=== PATIENT | female | born 1945 | race Caucasian/White ===

== ENCOUNTER → 2020-12-16 10:39 | Outpatient (CLI) | payer MEDICARE, SELFPAY ==
--- NOTE | ~2020-12-16 | MM_ITS ---
EXAMINATION: MM screening hardeep BI w jennifer HISTORY: Screening mammogram TECHNIQUE: Craniocaudal and mediolateral oblique 3-D tomosynthesis images were obtained and synthetic 2-D images were generated. CAD analysis was submitted and interpreted. COMPARISON: 02/18/2019, 10/22/2017 bilateral digital screening mammogram examinations 10/19/2016 bilateral diagnostic digital mammogram and bilateral complete breast ultrasound 10/06/2016 bilateral digital screening mammogram BREAST PARENCHYMAL COMPOSITION: The breasts are extremely dense, which lowers the sensitivity of mamm ography. FINDINGS: There is no evidence of suspicious mass, calcification, or architectural distortion to sugg est malignancy in either breast. There has been no suspicious interval change. IMPRESSION: 1. No mammographic evidence of malignancy. 2. Recommend routine screening mammography in one year. BI-RADS Category 1: Negative Reviewed, dictated and finalized at location A.
== END ==
PROVIDERS: Visit Provider Nurse Practitioner Obstetrics & Gynecology
DX: Z12.31 Encounter for screening mammogram for malignant neoplasm of breast (principal)
CPT/HCPCS: 77063; 77067

== ENCOUNTER 2021-10-24 11:31 | Outpatient (CLI) | payer MEDICARE, SELFPAY ==
[2021-10-24 11:52] LABS: Basophils Absolute Auto 0.1 K/mm3 (0.0-0.1); Basophils Percent Auto 0.7 % (0.2-1.2); Eosinophils Percent Auto 0.5 % (0-4.4); Hematocrit 43.3 % (37.0-47.0); Hemoglobin 14.3 g/dL (12.0-15.0); Immature Granulocyte Absolute 0.01 K/mm3 (0.00-0.031); Immature Granulocyte Percent A 0.1 % (0-0.5); Lymphocytes Absolute Auto 1.93 K/mm3 (0.9-3.2); Lymphocytes Percent Auto 26.2 % (18.3-44.2); Mean Corpuscular Hemoglobin 31.7 pg (26-34); Mean Platelet Volume 9.6 fl (7.4-10.4); Monocytes Absolute Auto 0.5 K/mm3 (0.1-0.6); Monocytes Percent Auto 7.2 % (2.6-8.5); Neutrophils Absolute Auto 4.8 K/mm3 (1.3-6.7); Neutrophils Percent Auto 65.3 % (45.5-73.1); Platelet Count Result 229 k/mm3 (150-375); Red Blood Count 4.51 M/mm3 (4.2-5.4); Red Cell Distribution Width 12.7 % (11.5-14.5); White Blood Count 7.4 K/mm3 (4.5-10.0)
[2021-10-24 12:08] LABS: Alanine Aminotransferase 16 U/L (4-35); Albumin Level 4.8 g/dL (3.5-5.1); Alkaline Phosphatase 39 U/L (38-126); Anion Gap 7 mmol/L (8-16); Aspartate Amino Transferase 25 U/L (14-36); Bilirubin,Total 0.8 mg/dL (0.2-1.3); Blood Urea Nitrogen 17 mg/dL (7-17); Calcium 9.5 mg/dL (8.4-10.2); Carbon Dioxide 31 mmol/L (22-30); Chloride 103 mmol/L (98-107); Estimated Glomerular Filt Rate > 60; Glucose 104 mg/dL (65-110); Potassium 3.8 mmol/L (3.4-5.0); Sodium 141 mmol/L (137-145)
== END 2021-10-24 11:32 | disposition home or self-care (01) ==
LOC: ANHLAB 11:37
PROVIDERS: PCP Family Medicine; Visit Provider Family Medicine
DX: R00.2 Palpitations (principal); R53.83 Other fatigue
CPT/HCPCS: 36415; 80053; 84443; 85025

== ENCOUNTER 2021-10-31 18:00 | Emergency (ER) | payer MEDICARE, SELFPAY ==
--- NOTE | ~2021-10-31 | XR_ITS ---
XR chest 2V DATE: 10/31/2021 18:28 INDICATION: Left chest pain, shortness of breath, palpitations TECHNIQUE: PA and lateral views COMPARISON: 11/15/2006 PA chest FINDINGS: Normal heart size. No hilar or mediastinal enlargement. The lungs appear mildly hyperinflat ed but clear of infiltrate or consolidation. No pleural effusion or pulmonary vascular congestion or pneumothorax. Diffuse osteopenia. IMPRESSION: No active disease Reviewed, dictated and finalized at location A. IMPRESSION: No active disease
--- NOTE | 2021-10-31 18:02 | ECG_ITS ---
Measurements Intervals Thompson Rate: 117 P: 68 ND: 130 QRS: 23 QRSD: 73 T: 24 QT: 291 QTc: 407 Interpretive Statements SINUS TACHYCARDIA WITH OCCASIONAL VENTRICULAR PREMATURE COMPLEXES WITH FREQUENT SUPRAVENTRICULAR PREMATURE COMPLEXES MINIMAL ST DEPRESSION [0.025+ mV ST DEPRESSION] ABNORMAL RHYTHM ECG NO PREVIOUS ECG AVAILABLE FOR COMPARISON Electronically Signed On 11-01-2021 11:53:07 CDT by Iesha Delong M.D.
[2021-10-31 18:03] VITALS: BP 146/81; PULSE 119; RESP 16; TEMP 37; O2SAT 97
[2021-10-31 18:21] LABS: Basophils Absolute Auto 0.1 K/mm3 (0.0-0.1); Basophils Percent Auto 0.6 % (0.2-1.2); Eosinophils Absolute Auto 0.1 K/mm3 (0-0.3); Eosinophils Percent Auto 1.3 % (0-4.4); Hematocrit 44.4 % (37.0-47.0); Hemoglobin 14.3 g/dL (12.0-15.0); Immature Granulocyte Absolute 0.03 K/mm3 (0.00-0.031); Immature Granulocyte Percent A 0.3 % (0-0.5); Lymphocytes Percent Auto 31.1 % (18.3-44.2); Mean Corpuscular HGB Conc 32.2 g/dl (32-36); Mean Corpuscular Hemoglobin 31.2 pg (26-34); Mean Corpuscular Volume 96.9 fl (80-100); Monocytes Absolute Auto 0.7 K/mm3 (0.1-0.6); Monocytes Percent Auto 7.1 % (2.6-8.5); Neutrophils Absolute Auto 5.5 K/mm3 (1.3-6.7); Neutrophils Percent Auto 59.6 % (45.5-73.1); Platelet Count Result 247 k/mm3 (150-375); Red Blood Count 4.58 M/mm3 (4.2-5.4); Red Cell Distribution Width 12.7 % (11.5-14.5); White Blood Count 9.3 K/mm3 (4.5-10.0)
[2021-10-31 18:40] LABS: INR 0.9; Prothrombin Time 12.2 Seconds (11.1-14.7)
[2021-10-31 18:41] LABS: Alanine Aminotransferase 14 U/L (4-35); Albumin Level 4.7 g/dL (3.5-5.1); Alkaline Phosphatase 46 U/L (38-126); Anion Gap 9 mmol/L (8-16); Aspartate Amino Transferase 24 U/L (14-36); Bilirubin,Total 0.5 mg/dL (0.2-1.3); Blood Urea Nitrogen 19 mg/dL (7-17); Calcium 9.2 mg/dL (8.4-10.2); Carbon Dioxide 24 mmol/L (22-30); Chloride 104 mmol/L (98-107); Estimated CRCL calculation 52 ml/min; Estimated Glomerular Filt Rate > 60; Glucose 128 mg/dL (65-110); Lipase 110 U/L (23-300); Partial Thromboplastin Time 28.6 SECONDS (22.3-36.8); Potassium 3.7 mmol/L (3.4-5.0); Sodium 137 mmol/L (137-145)
[2021-10-31 18:52] LABS: Troponin I < 0.012 ng/mL (0.000-0.034)
--- NOTE | 2021-10-31 18:56 | ED.CHESTPAIN ---
HPI - Chest Pain General Chief Complaint: Chest Pain <Chelsie Reynoso MD - Last Filed: 10/31/21 19:35> Stated Complaint: chest tightness <Chelsie Reynoso MD - Last Filed: 10/31/21 19:35> Time Seen by Provider: 10/31/21 18:49 <Chelsie Reynoso MD - Last Filed: 10/31/21 19:35> Source: patient <Chelsie Reynoso MD - Last Filed: 10/31/21 19:35> Mode of arrival: ambulatory <Chelsie Reynoso MD - Last Filed: 10/31/21 19:35> Limitations: no limitations <Chelsie Reynoso MD - Last Filed: 10/31/21 19:35> History of Present Illness HPI narrative: This is a 76 year old female who presents for evaluation of rapid heart rate and chest tightness. Patient has been having intermittent episodes of heart pounding and chest tightness for 3 months. These episodes occur at rest and they are not exertional. She has told her PCP about episodes and it was recommended for her to come ER if she has another episode. She states 15 minutes before coming to ER she developed sudden onset heart pound and midsternal chest tightness . Her symptoms have now resolved. She denies radiating of her tightness. She denies cough, fever, leg swelling, nausea , vomiting or diarrhea. She drinks 2 cups of coffee a day . She denies any new medication. She is being scheduled for stress test and holter monitor by PCP. <Chelsie Reynoso MD - Last Filed: 10/31/21 19:35> Related Data Home Medications: Home Medications Medication Instructions Recorded Confirmed aspirin [Aspir-81] 81 mg PO DAILY 10/31/21 10/31/21 cyclosporine [Restasis] 1 drp EACH EYE BID 10/31/21 <Chelsie Reynoso MD - Last Filed: 10/31/21 19:35> Allergies/Adverse Reactions: Allergies Allergy/AdvReac Type Severity Reaction Status Date / Time No Known Allergies Allergy Unverified 10/24/21 10:52 <Chelsie Reynoso MD - Last Filed: 10/31/21 19:35> Review of Systems Review of Systems: All systems reviewed & are unremarkable except as noted in HPI and below <Chelsie Reynoso MD - Last Filed: 10/31/21 19:35> [facility] Past Medical History Medical History: Medical History (Updated 11/01/21 @ 00:00 by Nahed Loyola) Heart palpitations <Chelsie Reynoso MD - Last Filed: 10/31/21 19:35> Family History Family History: Family History Mother Carcinoma of colon Sibling Family history of malignant neoplasm of breast in first degree relative <Chelsie Reynoso MD - Last Filed: 10/31/21 19:35> Social History Social History: Social History (Updated 10/24/21 @ 10:52 by Amara Jacques) Smoking status: Never smoker Second hand tobacco smoke exposure: No Alcohol intake: never Substance use: never Substance use type: does not use Gender identity (if verbalized by the patient): Female Sexual Orientation (if Verbalized by the Patient): Straight or Heterosexual <Chelsie Reynoso MD - Last Filed: 10/31/21 19:35> Exam Const: General: no acute distress and alert <Chelsie Reynoso MD - Last Filed: 10/31/21 19:35> Nutritional Appearance: thin <Chelsie Reynoso MD - Last Filed: 10/31/21 19:35> Orientation/consciousness: patient oriented x3 <Chelsie Reynoso MD - Last Filed: 10/31/21 19:35> Eyes: EOM: EOMs intact bilaterally <Chelsie Reynoso MD - Last Filed: 10/31/21 19:35> Chest: Chest palpation & inspection: normal inspection of the chest <Chelsie Reynoso MD - Last Filed: 10/31/21 19:35> Resp: Effort & Inspection: normal respiratory effort and no retractions <Chelsie Reynoso MD - Last Filed: 10/31/21 19:35> Auscultation: clear to auscultation bilaterally <Chelsie Reynoso MD - Last Filed: 10/31/21 19:35> Cardio: Rate: regular rate <Chelsie Reynoso MD - Last Filed: 10/31/21 19:35> Rhythm: regular rhythm <Chelsie Reynoso MD - Last Filed: 10/31/21 19:35> Heart sounds: no murmurs <Chelsie Reynoso MD - [place]
[2021-10-31] MEDS: ASPIRIN 81 MG CHEWABLE TABLET 324 MG PO (19:04)
[2021-10-31] MEDS: SODIUM CHLORIDE 0.9% IV 1,000 ML 999 ML IV CONT (19:06)
[2021-10-31 19:48] LABS: Magnesium 2.3 mg/dL (1.6-2.3)
[2021-10-31 20:29] VITALS: O2SAT 100
[2021-10-31 21:35] LABS: Troponin I < 0.012 ng/mL (0.000-0.034)
[2021-10-31 21:40] VITALS: BP 121/72; PULSE 84; RESP 17; O2SAT 100
== END 2021-10-31 22:03 | disposition home or self-care (01) ==
PROVIDERS: Emergency Medicine; General Practice; Emergency Provider Emergency Medicine; PCP Family Medicine
DX: R00.0 Tachycardia, unspecified (principal); R07.89 Other chest pain; Z79.82 Long term (current) use of aspirin
CPT/HCPCS: 36415; 71046; 80053; 83690; 83735; 84443; 84484; 85025; 85610; 85730; 93005; 96360; 99284; A9270; J7030

== ENCOUNTER 2022-05-12 07:57 | Outpatient (CLI) | payer MEDICARE, SELFPAY ==
--- NOTE | 2022-06-16 13:59 | WPDSLEEPSTUD ---
Sleep Study Date of Study: 05/12/22 Ordering Provider: Tad Ruiz MD Interpreting Physician: Althea Quispe MD Sleep Study Type: Polysomnogram Height: 1.63 m Weight: 58.513 kg Body Mass Index: 22.1 Neck Circumference (inches): 12 Jackson: 7 Reason for Sleep Study Rapid atrial fibrillation. Poor quality sleep. Sleep History Emani Morales is a 76 year old female with a history of rapid atrial fibrillation. this started about 6 months ago. She was treated with Eliquis and metoprolol. She does not awaken from sleep feeling short of breath or awaken at night with heartburn, belching or coughing. She occasionally snores but never loudly enough that others complain about it. She occasionally has trouble sleeping with a cold. She rarely wakes up gasping for breath at night. She does not have breathing problems at night observed by others. She does not sweat excessively at night. She occasionally notices her heart beating irregularly at night and occasionally falls asleep during the day. She does not fall asleep involuntarily or while driving. She does not have loss of muscle tone with strong emotion. She does not have daytime difficulties due to excessive sleepiness. She does not feel paralyzed on waking or falling asleep. She does not have vivid dreamlike scenes upon awakening or falling asleep. She does not feel afraid to go to sleep. She does not have nightmares. She occasionally remembers her dreams. She frequently has racing thoughts. She occasionally feels sad or depressed. She frequently has anxiety. She does not have muscular tension. She occasionally notices parts of her body jerking. She does not kick at night. She frequently has crawling and aching feelings in her legs. She does not have any kind of leg pain at night. She does not have morning jaw pain. She does not grind her teeth during sleep. She frequently is bothered by pain during the day. She occasionally is awakened by pain at night, occasionally wakes up feeling stiff in the morning, occasionally wakes up with sore achy muscles and pain in the neck and spine. She has insomnia, fatigue, headaches and palpitations. She has difficulties swallowing and she has indigestion. She has had a prior history of tonsillectomy and adenoidectomy. Normal bedtime is 11:00 p.m. taking 10 minutes to fall asleep typically waking 1-3 times at night to urinate and get a drink. She is able to return to sleep in 5 minutes, however sometimes up to 30 minutes. She wakes up at 5:50 a.m.. Her weekend schedule is the same. She estimates getting 6-7 hours of sleep at night. She takes naps in the afternoon or evening. A short nap of 10 or 15 minutes may be refreshing. She is usually drowsy on waking. She feels better in the morning compared to other times of day. She frequently has morning headaches. She occasionally awakens feeling refreshed. She reports a weight gain of 8 lb in the last year. Habits: Never smoked tobacco. Caffeine 1 serving a day. No alcohol or recreational drugs. ON LICENSE OF [facility] Past Medical History Medical History (Updated 06/16/22 @ 14:32 by Althea Quispe MD) PIYUSH (generalized anxiety disorder) Heart palpitations Paroxysmal A-fib Pulmonary HTN Surgical History Surgical History (Updated 06/16/22 @ 14:23 by Althea Quispe MD) S/P partial hysterectomy S/P tonsillectomy and adenoidectomy Family History Family History Mother Carcinoma of colon Sibling Family history of malignant neoplasm of breast in first degree relative Social History Social History Smoking status: Never smoker Second hand tobacco smoke exposure: No Alcohol intake: never Substance use: never Substance use type: does not use Gender identity (if verbalized by the patient): Female Sexual Orientation (if Verbalized by the Patient): Straight or Heter
[2022-06-16 14:40] VITALS: BMI 22.1
== END 2022-05-13 07:50 | disposition home or self-care (01) ==
LOC: ANHCSM 07:58
PROVIDERS: PCP Family Medicine; Visit Provider Internal Medicine Pulmonary Disease
DX: G47.61 Periodic limb movement disorder (principal); I27.20 Pulmonary hypertension, unspecified; G47.33 Obstructive sleep apnea (adult) (pediatric)
CPT/HCPCS: 95810

== ENCOUNTER → 2022-08-08 10:35 | Outpatient (CLI) | payer MEDICARE, SELFPAY ==
--- NOTE | ~2022-08-08 | MM_ITS ---
EXAMINATION: MM screening hardeep BI w jennifer HISTORY: Screening TECHNIQUE: Craniocaudal and mediolateral oblique 3-D tomosynthesis images were obtained and synthetic 2-D images were generated. CAD analysis was submitted and interpreted. COMPARISON: Comparison to multiple prior studies sequentially, with oldest reviewed study dated 09/17. BREAST PARENCHYMAL COMPOSITION: The breasts are extremely dense, which lowers the sensitivity of mamm ography. FINDINGS: There is a new nodular asymmetry superiorly in the right breast on MLO view. There is a new focal asymmetry in the upper outer quadrant of the left breast, middle third. There are no suspiciou s calcifications. IMPRESSION: 1. Bilateral breast asymmetries. 2. Additional mammographic views and possible breast ultrasound are recommended. BI-RADS Category 0: Incomplete: Needs additional imaging evaluation. Reviewed, dictated and finalized at location A. [employer]SEL[employer] IMPRESSION: 1. Bilateral breast asymmetries. 2. Additional mammographic views and possible breast ultrasound are recommended . BI-RADS Category 0: Incomplete: Needs additional imaging evaluation.
== END ==
PROVIDERS: PCP Family Medicine; Visit Provider Nurse Practitioner Obstetrics & Gynecology
DX: Z12.31 Encounter for screening mammogram for malignant neoplasm of breast (principal); R92.8 Other abnormal and inconclusive findings on diagnostic imaging of breast
CPT/HCPCS: 77063; 77067

== ENCOUNTER → 2022-09-06 09:20 | Outpatient (CLI) | payer MEDICARE, SELFPAY ==
--- NOTE | ~2022-09-06 | MM_ITS ---
EXAMINATION: MM diagnostic hardeep BI w jennifer HISTORY: Possible left breast mass and right asymmetry on screening mammogram TECHNIQUE: Additional 3-D tomosynthesis images of the breasts were performed and synthetic 2-D images were generated. CAD analysis was submitted and interpreted. COMPARISON: 08/08/2022, 12/16/2020, 02/18/2019 FINDINGS: There is a return to baseline fibroglandular appearance with spot compression of the breast s in the areas questioned on screening mammogram. IMPRESSION: 1. No mammographic evidence of malignancy. 2. Recommend routine screening mammography in one year. BI-RADS Category 1: Negative Reviewed, dictated and finalized at location A. [employer] ENGINEER
== END ==
PROVIDERS: PCP Family Medicine; Visit Provider Nurse Practitioner Obstetrics & Gynecology
DX: R92.8 Other abnormal and inconclusive findings on diagnostic imaging of breast (principal)
CPT/HCPCS: 77062; 77066; G0279

== ENCOUNTER 2022-11-13 08:28 | Outpatient (CLI) | payer MEDICARE, SELFPAY ==
[2022-11-13 08:49] LABS: Hematocrit 42.6 % (37.0-47.0); Hemoglobin 14.1 g/dL (12.0-15.0); Mean Corpuscular HGB Conc 33.1 g/dl (32-36); Mean Corpuscular Hemoglobin 32.3 pg (26-34); Mean Corpuscular Volume 97.7 fl (80-100); Mean Platelet Volume 9.8 fl (7.4-10.4); Platelet Count Result 197 k/mm3 (150-375); Red Blood Count 4.36 M/mm3 (4.2-5.4); Red Cell Distribution Width 12.8 % (11.5-14.5); White Blood Count 6.3 K/mm3 (4.5-10.0)
[2022-11-13 09:00] LABS: Appearance Urine Clear (Clear); Bacteria Urine None Seen /hpf; Bilirubin Urine Negative (Negative); Blood Urine Negative (Negative); Color Urine Yellow (Yellow); Glucose Urine UA Negative (Negative); Ketones Urine Negative (Negative); Leukocyte Esterase Ur Trace LEU/UL (NEGATIVE); Nitrate Urine Negative (Negative); Non Pathogenic Casts 0-2; Protein Urine Negative (Negative); RBC Urine 0-2 /hpf (0-2); Specific Grav Ur 1.015 (1.001-1.035); Squamous Epithelial Cell Urine None seen /hpf (Few); Urobilinogen Urine 0.2 mg/dL (<2.0); WBC Urine 0-5 /hpf (0-3); pH Urine 5.5 (5.0-9.0)
[2022-11-13 09:07] LABS: Alanine Aminotransferase 18 U/L (6-35); Albumin Level 4.4 g/dL (3.5-5.1); Alkaline Phosphatase 30 U/L (38-126); Anion Gap 4 mmol/L (8-16); Aspartate Amino Transferase 24 U/L (14-36); Bilirubin,Total 0.8 mg/dL (0.2-1.3); Blood Urea Nitrogen 20 mg/dL (7-17); Calcium 9.5 mg/dL (8.4-10.2); Carbon Dioxide 33 mmol/L (22-30); Chloride 103 mmol/L (98-107); Estimated Glomerular Filt Rate > 60; Glucose 86 mg/dL (65-110); Potassium 4.1 mmol/L (3.4-5.0); Sodium 140 mmol/L (137-145)
[2022-11-13 09:07] LABS: Add Urine Microscopic? YES
== END 2022-11-13 08:29 | disposition home or self-care (01) ==
PROVIDERS: PCP Family Medicine; Visit Provider Physician Assistant
DX: G47.61 Periodic limb movement disorder (principal); E78.5 Hyperlipidemia, unspecified; F41.1 Generalized anxiety disorder
CPT/HCPCS: 36415; 80053; 81001; 84443; 85027

== ENCOUNTER 2023-11-14 08:00 | Outpatient (CLI) | payer MEDICARE, SELFPAY ==
[2023-11-14 08:41] LABS: Alanine Aminotransferase 18 U/L (6-35); Albumin Level 4.4 g/dL (3.5-5.1); Alkaline Phosphatase 31 U/L (38-126); Anion Gap 3 mmol/L (4-12); Aspartate Amino Transferase 25 U/L (14-36); Bilirubin,Total 0.9 mg/dL (0.2-1.3); Blood Urea Nitrogen 19 mg/dL (7-17); Calcium 9.6 mg/dL (8.4-10.2); Carbon Dioxide 31 mmol/L (22-30); Chloride 104 mmol/L (98-107); Cholesterol 224 mg/dL (0-200); Estimated Glomerular Filt Rate > 60; Glucose 97 mg/dL (65-110); HDL Direct 79 mg/dL; Potassium 4.3 mmol/L (3.4-5.0); Sodium 138 mmol/L (137-145); Triglycerides 67 mg/dL (<150)
[2023-11-14 08:48] LABS: Hematocrit 44.7 % (37.0-47.0); Hemoglobin 14.3 g/dL (12.0-15.0); Mean Corpuscular Hemoglobin 31.6 pg (26-34); Mean Corpuscular Volume 98.9 fl (80-100); Mean Platelet Volume 10.6 fl (7.4-10.4); Platelet Count Result 214 k/mm3 (150-375); Red Blood Count 4.52 M/mm3 (4.2-5.4); White Blood Count 6.2 K/mm3 (4.5-10.0)
[2023-11-14 08:52] LABS: LDL Cholesterol Direct 131 mg/dL
[2023-11-14 09:58] LABS: Bacteria Urine None Seen /hpf; Non Pathogenic Casts 0-2; RBC Urine 0-2 /hpf (0-2); Squamous Epithelial Cell Urine Occasional /hpf (Few)
[2023-11-14 10:05] LABS: Appearance Urine Clear (Clear); Color Urine Yellow (Yellow); Glucose Urine UA Negative (Negative); Ketones Urine Negative (Negative); Protein Urine Negative (Negative); pH Urine 5.5 (5.0-8.0)
[2023-11-14 10:06] LABS: Bilirubin Urine Negative (Negative); Blood Urine Negative (Negative); Leukocyte Esterase Ur 1+ (Negative); Nitrate Urine Negative (Negative); Urobilinogen Urine 0.2 mg/dL (0.2-1.0)
[2023-11-14 10:09] LABS: Add Urine Microscopic? YES
== END 2023-11-14 08:01 | disposition home or self-care (01) ==
PROVIDERS: PCP Family Medicine; Visit Provider Family Medicine
DX: E78.5 Hyperlipidemia, unspecified (principal); G47.61 Periodic limb movement disorder; I48.0 Paroxysmal atrial fibrillation; I27.20 Pulmonary hypertension, unspecified; R53.83 Other fatigue; F41.1 Generalized anxiety disorder
CPT/HCPCS: 36415; 80053; 80061; 81001; 84443; 85027

== ENCOUNTER 2024-12-19 12:23 | Outpatient (CLI) | payer MEDICARE, SELFPAY ==
--- NOTE | ~2024-12-19 | MM_ITS ---
EXAMINATION: MM screening hardeep BI w jennifer HISTORY: Screening TECHNIQUE: Craniocaudal and mediolateral oblique 3-D tomosynthesis images were obtained and synthetic 2-D images were generated. CAD analysis was submitted and interpreted. COMPARISON: Comparison to multiple prior studies sequentially, with oldest reviewed study dated 09/2016. BREAST PARENCHYMAL COMPOSITION: Dense: The breasts are extremely dense, which lowers the sensitivity of mammography. FINDINGS: There is no evidence of suspicious mass, calcification, or architectural distortion to sugg est malignancy in either breast. There has been no suspicious interval change. IMPRESSION: 1. No mammographic evidence of malignancy. 2. Recommend routine screening mammography in one year. BI-RADS Category 1: Negative Reviewed, dictated and finalized at location A.
== END 2024-12-19 12:24 | disposition home or self-care (01) ==
LOC: MICIMG 12:24
PROVIDERS: PCP Family Medicine; Visit Provider Family Medicine
DX: Z12.31 Encounter for screening mammogram for malignant neoplasm of breast (principal)
CPT/HCPCS: 77063; 77067